=== PATIENT | female | born 1980 | race Asian ===

== ENCOUNTER 2017-09-06 15:52 | Emergency (ER) | payer OTHER ==
[~2017-09-06] VITALS: Ht 152.4 cm; Wt 68.2 kg
[2017-09-06] MEDS ORDERED: MethylPREDNISolone SOD SUCC 125 MG/2 ML VIAL ONE (16:52)
[2017-09-06] MEDS ORDERED: DiphenhydrAMINE HCL 50 MG/ML VIAL ONE (16:52)
[2017-09-06] MEDS ORDERED: FAMOTIDINE 10 MG/ML 2 ML VIAL ONE (16:53)
[2017-09-06] MEDS ORDERED: FAMOTIDINE 10 MG/ML 2 ML VIAL IVP ONE (17:00)
[2017-09-06] MEDS ORDERED: MethylPREDNISolone SOD SUCC 125 MG/2 ML VIAL IVP ONE (17:00)
[2017-09-06] MEDS ORDERED: DiphenhydrAMINE HCL 50 MG/ML VIAL IVP ONE (17:00)
[2017-09-06] MEDS ORDERED: SODIUM CHLORIDE 0.9% 1,000 ML IV ONE (17:10)
[2017-09-06 19:06] VITALS: BP 129/89
== END 2017-09-06 19:51 | disposition home or self-care (01) ==
LOC: EMS 15:56
DX: L50.0 Allergic urticaria (principal)
CPT/HCPCS: 96374; 96375; 99285; J1200; J2930; J3490; J7030